=== PATIENT | female | born 1985 | race Caucasian/White ===

== ENCOUNTER 2017-04-18 13:54 | Emergency (ER) | payer OTHER ==
[~2017-04-18] VITALS: Ht 154.9 cm; Wt 104.4 kg
[2017-04-18 18:04] VITALS: BP 129/78
== END 2017-04-18 18:04 | disposition home or self-care (01) ==
LOC: ED 13:54
DX: J02.0 Streptococcal pharyngitis (principal)

== ENCOUNTER 2017-07-15 17:22 | Emergency (ER) | payer OTHER ==
[2017-07-15 21:13] VITALS: BP 117/66
== END 2017-07-15 21:13 | disposition home or self-care (01) ==
LOC: ED 17:22
DX: S39.012A Strain of muscle, fascia and tendon of lower back, initial encounter (principal); X58.XXXA Exposure to other specified factors, initial encounter; Y93.89 Activity, other specified; Y92.89 Other specified places as the place of occurrence of the external cause; Y99.8 Other external cause status
CPT/HCPCS: J1885; J2270; Q0162

== ENCOUNTER 2018-03-09 17:59 | Emergency (ER) | payer OTHER ==
[~2018-03-09] VITALS: Ht 152.4 cm; Wt 129.3 kg
[2018-03-09 18:03] VITALS: BP 112/61; Ht 152.4 cm; Wt 129.3 kg
== END 2018-03-09 19:11 | disposition home or self-care (01) ==
LOC: ED 17:59
DX: R11.2 Nausea with vomiting, unspecified (principal); R07.89 Other chest pain

== ENCOUNTER 2018-03-19 17:42 | Emergency (ER) | payer OTHER ==
[~2018-03-19] VITALS: Ht 154.9 cm; Wt 130.2 kg
[2018-03-19 17:50] VITALS: Ht 154.9 cm; Wt 130.2 kg
[2018-03-19 18:49] LABS: BASOPHIL % 0.4 % (0-2); PLATELET COUNT 293 x10^3mcL (130-400); RED CELL DISTRIBUTION WIDTH 14.2 % (11.5-14.5)
[2018-03-19 18:52] LABS: CALCIUM 8.5 mg/dL (8.5-10.1); CARBON DIOXIDE 27.1 mmol/L (21-32); CHLORIDE SERUM 103 mmol/L (98-107); CREATININE SERUM 0.9 mg/dL (0.6-1.0); GFR1 > 60 mL/min; GLUCOSE SERUM 105 mg/dL (74-106); POTASSIUM SERUM 3.8 mmol/L (3.5-5.1); SODIUM SERUM 137 mmol/L (136-145)
[2018-03-19 18:57] LABS: ALBUMIN 3.5 g/dL (3.4-5.0); ALKALINE PHOSPHATASE 96 U/L (46-116); ALT/SGPT 40 U/L (14-59); AST/SGOT 28 U/L (15-37); LIPASE 113 IU/L (73-393); TOTAL PROTEIN, SERUM 8.2 g/dL (6.4-8.2)
[2018-03-19 22:28] VITALS: BP 158/97
== END 2018-03-19 22:15 | disposition home or self-care (01) ==
LOC: ED 17:42
PROVIDERS: Emergency Medicine
DX: K76.0 Fatty (change of) liver, not elsewhere classified (principal)
CPT/HCPCS: 36415; Q0092

== ENCOUNTER 2019-12-17 16:10 | Emergency (ER) | payer OTHER ==
[~2019-12-17] VITALS: Ht 154.9 cm; Wt 148.3 kg
[2019-12-17 16:16] VITALS: BP 126/65; Ht 154.9 cm; Wt 148.3 kg
== END 2019-12-17 17:11 | disposition home or self-care (01) ==
LOC: ED 16:10
DX: L30.4 Erythema intertrigo (principal); E11.9 Type 2 diabetes mellitus without complications